=== PATIENT | male | born 1995 | race Caucasian/White ===

== ENCOUNTER 2016-10-18 21:33 | Emergency (ER) | payer OTHER ==
[~2016-10-18] VITALS: Wt 84.8 kg
[~2016-10-18 21:33] MED LIST: AMOXIL400 MG/5 M PO; AMOXIL500 MG PO; CLARITIN10 MG PO; FLEXERIL5 MG PO; IBU800 MG PO; IBUPROFEN600 MG PO; KENALOG 0.1%80 GM T; MEDROL DOSEPAK4 MG PO; MOTRIN800 MG PO; NAPROSYN500 MG PO; NKHM; NORCO 5-325 TA1 EACH PO; PEN-VEE K500 MG PO; PREDNISONE10 MG PO; TORADOL10 MG PO; TRAMADOL HCL50 MG PO; ULTRAM50 MG PO; VYVANSE30 MG PO
[2016-10-18] MEDS ORDERED: VYVANSE40 MG PO (21:46)
[2016-10-18 23:27] LABS: BILIRUBIN NEGATIVE (NEGATIVE); BLOOD NEGATIVE (NEGATIVE); CLARITY CLEAR (CLEAR); COLOR YELLOW (YELLOW); GLUCOSE NEGATIVE (NEGATIVE); KETONE NEGATIVE (NEGATIVE); LEUKO ESTERASE NEGATIVE (NEGATIVE); NITRITE NEGATIVE (NEGATIVE); PH 8.5 (5.0-9.0); PROTEIN NEGATIVE (NEGATIVE); UROBILINOGEN 0.2 E.U./dl (0.2-1.0)
[2016-10-18 23:45] LABS: BACTERIA TRACE; URINE REFLEX COMMENT NO (NO); WBC 0-2 wbc/hpf (0-5)
[2016-10-19] MEDS ORDERED: DELTASONE20 M1 PO (00:15)
[2016-10-19] MEDS ORDERED: PROCTOSOL-HC2.51 TP (00:15)
[2016-10-19] MEDS ORDERED: HYDROCODONE BIT1 T11 PO (00:15)
== END 2016-10-19 00:35 | disposition home or self-care (01) ==
LOC: ED 21:33
PROVIDERS: Physician Assistant
DX: S20.221A Contusion of right back wall of thorax, initial encounter (principal); K64.4 Residual hemorrhoidal skin tags; M54.16 Radiculopathy, lumbar region; F17.200 Nicotine dependence, unspecified, uncomplicated; Z79.899 Other long term (current) drug therapy; W22.8XXA Striking against or struck by other objects, initial encounter; Y93.9 Activity, unspecified; Y92.9 Unspecified place or not applicable; Y99.9 Unspecified external cause status

== ENCOUNTER 2017-01-30 12:24 | Emergency (ER) | payer OTHER ==
[~2017-01-30] VITALS: Wt 84.8 kg
[~2017-01-30 12:24] MED LIST changes: +DELTASONE20 M1 PO; +HYDROCODONE BIT1 T11 PO; +PROCTOSOL-HC2.51 TP; +VYVANSE40 MG PO
[2017-01-30 12:28] VITALS: BP 141/61
[2017-01-30] MEDS ORDERED: PREDNISONE10 MG PO (12:41)
== END 2017-01-30 13:24 | disposition home or self-care (01) ==
LOC: ED 12:24
DX: L30.9 Dermatitis, unspecified (principal); R03.0 Elevated blood-pressure reading, without diagnosis of hypertension; F17.200 Nicotine dependence, unspecified, uncomplicated; Z79.899 Other long term (current) drug therapy

== ENCOUNTER 2017-05-08 20:27 | Emergency (ER) | payer OTHER ==
[~2017-05-08] VITALS: Ht 180.3 cm; Wt 77.1 kg
[2017-05-08 20:40] LABS: BASO % 0.8 % (0.0-1.0); EOS # 0.1 10*3/uL (0.0-0.4); EOS % 1.7 % (1.0-4.0); HEMATOCRIT 42.9 % (42.0-52.0); HEMOGLOBIN 14.5 g/dl (14.0-18.0); LYMPH # 1.6 10*3/uL (1.3-4.4); LYMPH % 31.6 % (27.0-41.0); MEAN CELL VOLUME 88.3 fl (80.0-94.0); MEAN CORPUSCULAR HGB 29.8 pg (27.0-31.0); MEAN CORPUSCULAR HGB CONC 33.8 g/dl (33.0-37.0); MONO # 0.4 10*3/uL (0.1-1.0); MONO % 8.1 % (3.0-9.0); NEUT % 57.8 % (47.0-73.0); PLATELET COUNT AUTOMATED 208 10*3/uL (130-400); RED BLOOD COUNT 4.86 10*6/uL (4.50-5.90); RED CELL DISTRI WIDTH 12.9 % (0-14.5); WHITE BLOOD COUNT 5.2 10*3/uL (4.8-10.8)
[2017-05-08 20:49] LABS: ACT PARTIAL THROMBO TIME 26.3 SECONDS (20.8-31.5)
[2017-05-08 20:58] LABS: ALBUMIN 4.3 gm/dl (3.1-4.5); ALKALINE PHOSPHATASE 97 U/L (45-117); BUN 10 mg/dl (7-24); CHLORIDE 103 mmol/L (98-107); CREATININE 1.02 mg/dL (0.70-1.30); MAGNESIUM 2.2 mg/dL (1.5-2.1); SGOT/AST 28 IU/L (3-35); SGPT/ALT 25 U/L (12-78); SODIUM 137 mmol/L (136-145); TOTAL PROTEIN 8.1 gm/dL (6.4-8.2); TROPONIN I < 0.015 ng/ml (<0.045)
[2017-05-08 22:22] VITALS: BP 112/65
[2017-05-08] MEDS ORDERED: KETOROLAC10 MG PO (22:34)
== END 2017-05-09 08:03 | disposition home or self-care (01) ==
LOC: ED 20:27
PROVIDERS: Emergency Medicine Emergency Medical Services
DX: R07.89 Other chest pain (principal); R42 Dizziness and giddiness; F17.200 Nicotine dependence, unspecified, uncomplicated

== ENCOUNTER 2017-05-22 15:29 | Emergency (ER) | payer OTHER ==
[~2017-05-22] VITALS: Ht 180.3 cm; Wt 77.1 kg
[~2017-05-22 15:29] MED LIST changes: +KETOROLAC10 MG PO
[2017-05-22 15:37] VITALS: BP 119/53
[2017-05-22] MEDS ORDERED: AUGMENTIN 875875 MG PO (15:54)
== END 2017-05-22 16:06 | disposition home or self-care (01) ==
LOC: ED 15:29
DX: J02.9 Acute pharyngitis, unspecified (principal); H65.93 Unspecified nonsuppurative otitis media, bilateral; F17.200 Nicotine dependence, unspecified, uncomplicated

== ENCOUNTER 2017-06-25 23:16 | Emergency (ER) | payer OTHER ==
[~2017-06-25] VITALS: Wt 76.2 kg
[~2017-06-25 23:16] MED LIST changes: +AUGMENTIN 875875 MG PO
[2017-06-25 23:21] VITALS: BP 125/66
== END 2017-06-26 00:30 | disposition home or self-care (01) ==
LOC: ED 23:16
DX: R05 Cough (principal); F17.200 Nicotine dependence, unspecified, uncomplicated

== ENCOUNTER 2017-09-13 02:06 | Emergency (ER) | payer SELFPAY ==
[~2017-09-13] VITALS: Ht 182.8 cm; Wt 81.6 kg
[2017-09-13 02:11] VITALS: BP 134/86
[2017-09-13] MEDS ORDERED: IBU800 MG PO (02:48)
== END 2017-09-13 02:50 | disposition home or self-care (01) ==
LOC: ED 02:06
DX: S93.401A Sprain of unspecified ligament of right ankle, initial encounter (principal); F17.200 Nicotine dependence, unspecified, uncomplicated; X58.XXXA Exposure to other specified factors, initial encounter; Y93.39 Activity, other involving climbing, rappelling and jumping off; Y92.89 Other specified places as the place of occurrence of the external cause; Y99.8 Other external cause status

== ENCOUNTER 2018-11-29 21:37 | Emergency (ER) | payer OTHER ==
[~2018-11-29] VITALS: Ht 154.9 cm; Wt 88.5 kg
[2018-11-29 21:40] VITALS: BP 129/72
[2018-11-29] MEDS ORDERED: ANAPROX DS550 MG PO (23:48)
[2018-11-29] MEDS ORDERED: ROBAXIN500 M1 PO (23:48)
== END 2018-11-30 00:03 | disposition home or self-care (01) ==
LOC: ED 21:37
DX: M54.5 Low back pain (principal); F17.200 Nicotine dependence, unspecified, uncomplicated; Z79.899 Other long term (current) drug therapy; X58.XXXA Exposure to other specified factors, initial encounter; Y93.89 Activity, other specified; Y92.89 Other specified places as the place of occurrence of the external cause; Y99.8 Other external cause status

== ENCOUNTER 2019-01-18 12:12 | Emergency (ER) | payer OTHER ==
[~2019-01-18] VITALS: Ht 182.8 cm; Wt 81.6 kg
[~2019-01-18 12:12] MED LIST changes: +ANAPROX DS550 MG PO; +ROBAXIN500 M1 PO
[2019-01-18 12:17] VITALS: BP 139/68
[2019-01-18] MEDS ORDERED: CEPHALEXIN500 M1 PO (13:38)
[2019-01-18] MEDS ORDERED: ANTIBIOTIC28.4 GM T (13:38)
== END 2019-01-18 14:26 | disposition home or self-care (01) ==
LOC: ED 12:12
DX: S59.901A Unspecified injury of right elbow, initial encounter (principal); S49.91XA Unspecified injury of right shoulder and upper arm, initial encounter; F17.200 Nicotine dependence, unspecified, uncomplicated; W22.8XXA Striking against or struck by other objects, initial encounter; Y93.89 Activity, other specified; Y92.89 Other specified places as the place of occurrence of the external cause; Y99.8 Other external cause status

== ENCOUNTER 2020-04-21 17:17 | Emergency (ER) | payer OTHER ==
[~2020-04-21] VITALS: Wt 86.2 kg
[~2020-04-21 17:17] MED LIST changes: +ANTIBIOTIC28.4 GM T; +CEPHALEXIN500 M1 PO
[2020-04-21 21:08] VITALS: BP 125/83
== END 2020-04-21 20:57 | disposition home or self-care (01) ==
LOC: ED 17:17
DX: T26.00XA Burn of unspecified eyelid and periocular area, initial encounter (principal); T24.032A Burn of unspecified degree of left lower leg, initial encounter; S80.812A Abrasion, left lower leg, initial encounter; S80.811A Abrasion, right lower leg, initial encounter; S00.83XA Contusion of other part of head, initial encounter; S40.012A Contusion of left shoulder, initial encounter; Z79.899 Other long term (current) drug therapy; V86.56XA Driver of dirt bike or motor/cross bike injured in nontraffic accident, initial encounter; X08.8XXA Exposure to other specified smoke, fire and flames, initial encounter; Y93.89 Activity, other specified; Y92.89 Other specified places as the place of occurrence of the external cause; Y99.8 Other external cause status

== ENCOUNTER 2023-03-28 16:13 | Emergency (ER) | payer OTHER ==
[~2023-03-28] VITALS: Ht 180.3 cm; Wt 90.7 kg
[2023-03-28 16:20] VITALS: BP 149/81
[2023-03-28] MEDS ORDERED: TRIAMCINOLONE430 GM TD (16:48)
[2023-03-28] MEDS ORDERED: PREDNISONE20 M1 PO (16:48)
== END 2023-03-28 17:12 | disposition home or self-care (01) ==
LOC: ED 16:13
DX: L23.7 Allergic contact dermatitis due to plants, except food (principal); F90.9 Attention-deficit hyperactivity disorder, unspecified type; Z98.890 Other specified postprocedural states

== ENCOUNTER 2023-12-29 09:56 | Emergency (ER) | payer OTHER ==
[~2023-12-29] VITALS: Ht 180.3 cm; Wt 104.3 kg
[~2023-12-29 09:56] MED LIST changes: +PREDNISONE20 M1 PO; +TRIAMCINOLONE430 GM TD
[2023-12-29 10:11] VITALS: BP 147/74
[2023-12-29] MEDS ORDERED: Acetaminophen/Oxycodone 5 MG/325 MG TABLET PO ONE (10:20)
[2023-12-29] MEDS ORDERED: MELOXICAM15 MG PO (10:31)
== END 2023-12-29 10:44 | disposition home or self-care (01) ==
LOC: ED 09:56
DX: K42.9 Umbilical hernia without obstruction or gangrene (principal); Z98.890 Other specified postprocedural states

== ENCOUNTER 2024-01-02 15:52 | Emergency (ER) | payer OTHER ==
[~2024-01-02] VITALS: Ht 180.3 cm; Wt 104.3 kg
[~2024-01-02 15:52] MED LIST changes: +MELOXICAM15 MG PO
[2024-01-02 16:14] VITALS: BP 125/83
[2024-01-02] MEDS ORDERED: CEPHALEXIN500 M1 PO (17:11)
== END 2024-01-02 17:29 | disposition home or self-care (01) ==
LOC: ED 15:52
DX: R19.8 Other specified symptoms and signs involving the digestive system and abdomen (principal); K42.9 Umbilical hernia without obstruction or gangrene; F90.9 Attention-deficit hyperactivity disorder, unspecified type; Z98.890 Other specified postprocedural states

== ENCOUNTER 2024-02-27 14:32 | Emergency (ER) | payer OTHER ==
[~2024-02-27] VITALS: Ht 180.3 cm; Wt 108.9 kg
[2024-02-27 15:10] VITALS: BP 122/60
[2024-02-27] MEDS ORDERED: PREDNISONE20 M1 PO (15:11)
== END 2024-02-27 15:23 | disposition home or self-care (01) ==
LOC: ED 14:32
DX: L23.7 Allergic contact dermatitis due to plants, except food (principal); F90.9 Attention-deficit hyperactivity disorder, unspecified type; Z98.890 Other specified postprocedural states

== ENCOUNTER 2024-05-17 15:05 | Emergency (ER) | payer OTHER ==
[~2024-05-17] VITALS: Ht 177.8 cm; Wt 99.8 kg
[2024-05-17 15:19] VITALS: BP 142/86
[2024-05-17] MEDS ORDERED: CEPHALEXIN500 M1 PO (15:29)
[2024-05-17] MEDS ORDERED: NYSTATIN CREAM15 GM T (15:29)
== END 2024-05-17 15:55 | disposition home or self-care (01) ==
LOC: ED 15:05
DX: B36.9 Superficial mycosis, unspecified (principal); L03.311 Cellulitis of abdominal wall; F90.9 Attention-deficit hyperactivity disorder, unspecified type; Z98.890 Other specified postprocedural states

== ENCOUNTER 2024-06-19 12:16 | Emergency (ER) | payer OTHER ==
[~2024-06-19] VITALS: Ht 180.3 cm; Wt 102.1 kg
[~2024-06-19 12:16] MED LIST changes: +NYSTATIN CREAM15 GM T
[2024-06-19] MEDS ORDERED: FAMOTIDINE 50 ML IV ONE ×2 (12:50→16:40)
[2024-06-19] MEDS ORDERED: SODIUM CHLORIDE 0.9% 500 ML IV ONE (12:50)
[2024-06-19] MEDS ORDERED: diphenhydrAMINE hydrochloride 50 MG/ML VIAL IV ONE (12:50)
[2024-06-19] MEDS ORDERED: methylPREDNISolone sod succ 125 MG VIAL IV ONE (12:50)
[2024-06-19 13:04] LABS: BASO % 0.5 % (0.0-1.0); EOS # 0.1 10*3/uL (0.0-0.4); EOS % 1.7 % (1.0-4.0); HEMATOCRIT 45.2 % (42.0-52.0); MEAN CELL VOLUME 89.5 fl (80.0-94.0); MEAN CORPUSCULAR HGB 28.7 pg (27.0-31.0); MEAN CORPUSCULAR HGB CONC 32.1 g/dl (33.0-37.0); MONO # 0.4 10*3/uL (0.1-1.0); MONO % 4.9 % (3.0-9.0); NEUT # 4.9 10*3/uL (2.3-7.9); NEUT % 65.6 % (47.0-73.0); PLATELET COUNT AUTOMATED 274 10*3/uL (130-400); RED BLOOD COUNT 5.05 10*6/uL (4.50-5.90); RED CELL DISTRI WIDTH 12.9 % (0-14.5); WHITE BLOOD COUNT 7.5 10*3/uL (4.8-10.8)
[2024-06-19 13:40] LABS: ALKALINE PHOSPHATASE 111 U/L (46-116); BUN 15 mg/dl (9-23); CHLORIDE 103 mmol/L (98-107); POTASSIUM 3.4 mmol/L (3.4-5.1); SGPT/ALT 32 U/L (5-49); TOTAL PROTEIN 7.7 gm/dL (6.0-8.0)
[2024-06-19 17:10] VITALS: BP 130/70
== END 2024-06-19 17:07 ==
LOC: ED 12:16
PROVIDERS: Emergency Medicine
DX: T41.0X1A Poisoning by inhaled anesthetics, accidental (unintentional), initial encounter (principal); K12.2 Cellulitis and abscess of mouth; F90.9 Attention-deficit hyperactivity disorder, unspecified type; Z98.890 Other specified postprocedural states; Y92.89 Other specified places as the place of occurrence of the external cause

== ENCOUNTER 2024-09-25 17:54 | Emergency (ER) | payer OTHER ==
[~2024-09-25] VITALS: Ht 180.3 cm; Wt 102.5 kg
[2024-09-25 18:08] VITALS: BP 135/76
[2024-09-25] MEDS ORDERED: Acetaminophen/Hydrocodone 5 MG/325 MG TABLET PO ONE (18:40)
[2024-09-25] MEDS ORDERED: CYCLOBENZAPRINE10 MG PO (21:56)
[2024-09-25] MEDS ORDERED: Cyclobenzaprine Hydrochlorid 10 MG TAB PO ONE (22:00)
== END 2024-09-25 22:10 | disposition home or self-care (01) ==
LOC: ED 17:54
DX: S39.012A Strain of muscle, fascia and tendon of lower back, initial encounter (principal); M25.551 Pain in right hip; M51.26 Other intervertebral disc displacement, lumbar region; F90.9 Attention-deficit hyperactivity disorder, unspecified type; Z98.890 Other specified postprocedural states; V49.9XXA Car occupant (driver) (passenger) injured in unspecified traffic accident, initial encounter; Y93.89 Activity, other specified; Y92.410 Unspecified street and highway as the place of occurrence of the external cause; Y99.8 Other external cause status

== ENCOUNTER 2025-05-08 11:57 | Emergency (ER) | payer SELFPAY ==
[~2025-05-08] VITALS: Ht 180.3 cm; Wt 98.4 kg
[~2025-05-08 11:57] MED LIST changes: +CYCLOBENZAPRINE10 MG PO
[2025-05-08 12:03] VITALS: BP 143/70
[2025-05-08] MEDS ORDERED: MEDROL DOSEPAK4 MG PO (12:40)
[2025-05-08] MEDS ORDERED: AMOX-CLAV 875-1 EACH PO (12:40)
[2025-05-08] MEDS ORDERED: ANTIFUNGAL CRE141 GM T (12:40)
== END 2025-05-08 13:09 | disposition home or self-care (01) ==
LOC: ED 11:57
DX: K04.7 Periapical abscess without sinus (principal); B35.3 Tinea pedis; F90.9 Attention-deficit hyperactivity disorder, unspecified type

== ENCOUNTER 2025-05-13 10:44 | Emergency (ER) | payer SELFPAY ==
[~2025-05-13] VITALS: Ht 180.3 cm; Wt 99.8 kg
[~2025-05-13 10:44] MED LIST changes: +AMOX-CLAV 875-1 EACH PO; +ANTIFUNGAL CRE141 GM T
[2025-05-13 10:52] VITALS: BP 157/105
[2025-05-13] MEDS ORDERED: Ondansetron Hydrochloride 4 MG/2 ML VIAL IV ONE (11:40)
[2025-05-13] MEDS ORDERED: HYDROmorphONE Hydrochloride 0.5 MG/0.5 ML SYRINGE IV ONE (11:40)
[2025-05-13] MEDS ORDERED: SODIUM CHLORIDE 0.9% 1,000 ML IV ONE (11:40)
[2025-05-13] MEDS ORDERED: IOHEXOL 300 MG/ML 100 ML VIAL IV ONE (11:45)
[2025-05-13 11:52] LABS: BASO # 0.1 10*3/uL (0.0-0.1); BASO % 0.6 % (0.0-1.0); EOS # 0.1 10*3/uL (0.0-0.4); EOS % 1.0 % (1.0-4.0); MEAN CELL VOLUME 88.8 fl (80.0-94.0); MEAN CORPUSCULAR HGB 29.1 pg (27.0-31.0); MEAN PLATELET VOLUME 9.1 fl (9.6-12.3); MONO # 1.0 10*3/uL (0.1-1.0); MONO % 8.9 % (3.0-9.0); NEUT # 7.6 10*3/uL (2.3-7.9); NEUT % 70.9 % (47.0-73.0); NUCLEATED RED BLOOD CELL 0.0 % (0.0-0.0); NUCLEATED RED BLOOD CELL 0.0 10*3/uL (0.0-0.0); PLATELET COUNT AUTOMATED 367 10*3/uL (130-400); RED CELL DISTRI WIDTH 13.7 % (0-14.5)
[2025-05-13 12:14] LABS: BUN 10 mg/dl (9-23); SGPT/ALT 121 U/L (5-49)
[2025-05-13 12:41] LABS: BILIRUBIN Negative (Negative); BLOOD Negative (Negative); CLARITY Clear (Clear); COLOR Yellow (Yellow); KETONE Negative (Negative); LEUKO ESTERASE Negative (Negative); NITRITE Negative (Negative); SPECIFIC GRAVITY >= 1.030 (1.001-1.030); UROBILINOGEN 0.2 E.U./dl (0.0-1.0)
[2025-05-13 12:42] LABS: PH 8.5 (4.5-8.0)
[2025-05-13 12:51] LABS: EPITHELIAL CELLS 0-2; RBC 0-2 rbc/hpf (0-2)
[2025-05-13] MEDS ORDERED: Motrin,Rufen800 MG PO (12:58)
[2025-05-13] MEDS ORDERED: PERCOCET 5-3251 EACH PO (12:58)
== END 2025-05-13 13:09 | disposition home or self-care (01) ==
LOC: ED 10:44
PROVIDERS: Nurse Practitioner Family
DX: S16.1XXA Strain of muscle, fascia and tendon at neck level, initial encounter (principal); S63.502A Unspecified sprain of left wrist, initial encounter; S20.212A Contusion of left front wall of thorax, initial encounter; S09.90XA Unspecified injury of head, initial encounter; F90.9 Attention-deficit hyperactivity disorder, unspecified type; V47.6XXA Car passenger injured in collision with fixed or stationary object in traffic accident, initial encounter; Y93.89 Activity, other specified; Y92.410 Unspecified street and highway as the place of occurrence of the external cause; Y99.8 Other external cause status

== ENCOUNTER 2025-06-23 13:23 | Emergency (ER) | payer SELFPAY ==
[~2025-06-23] VITALS: Wt 113.4 kg
[~2025-06-23 13:23] MED LIST changes: +Motrin,Rufen800 MG PO; +PERCOCET 5-3251 EACH PO
[2025-06-23 13:31] VITALS: BP 135/86
[2025-06-23 14:23] LABS: URINE AMPHETAMINES Negative (1000ng/ml); URINE BARBITURATES Negative (200ng/ml); URINE BENZODIAZEPINES Negative (200ng/ml); URINE CANNABINOIDS (THC) Positive (50ng/ml); URINE COCAINE Positive (300ng/ml); URINE METHADONE Negative (300ng/ml); URINE OPIATES Positive (300ng/ml); URINE PHENCYCLIDINE Negative (25ng/ml)
[2025-06-23] MEDS ORDERED: ETOMIDATE 20 MG/10 ML VIAL IV ONE ×2 (14:35→19:27)
[2025-06-23] MEDS ORDERED: ROCURONIUM BROMIDE 50 MG/5 ML SYRINGE IV ONE ×3 (14:40→19:27)
[2025-06-23 14:44] LABS: BASO # 0.1 10*3/uL (0.0-0.1); BASO % 0.4 % (0.0-1.0); EOS # 0.1 10*3/uL (0.0-0.4); EOS % 0.6 % (1.0-4.0); MEAN CELL VOLUME 91.3 fl (80.0-94.0); MEAN CORPUSCULAR HGB 29.4 pg (27.0-31.0); MEAN PLATELET VOLUME 9.2 fl (9.6-12.3); MONO # 0.8 10*3/uL (0.1-1.0); MONO % 5.3 % (3.0-9.0); NEUT # 12.7 10*3/uL (2.3-7.9); NEUT % 83.2 % (47.0-73.0); NUCLEATED RED BLOOD CELL 0.0 % (0.0-0.0); NUCLEATED RED BLOOD CELL 0.0 10*3/uL (0.0-0.0); PLATELET COUNT AUTOMATED 346 10*3/uL (130-400); RED CELL DISTRI WIDTH 13.2 % (0-14.5)
[2025-06-23] MEDS ORDERED: PROPOFOL 50 ML IV SCH (15:00)
[2025-06-23 15:06] LABS: BUN 11 mg/dl (9-23); SGPT/ALT 50 U/L (5-49)
[2025-06-23] MEDS ORDERED: SODIUM CHLORIDE 0.9% 2,000 ML IV ONE (15:13)
== END 2025-06-23 15:27 | disposition short-term general hospital (02) ==
LOC: ED 13:23
PROVIDERS: Emergency Medicine
DX: S29.9XXA Unspecified injury of thorax, initial encounter (principal); S39.93XA Unspecified injury of pelvis, initial encounter; F90.9 Attention-deficit hyperactivity disorder, unspecified type; V86.95XA Unspecified occupant of 3- or 4- wheeled all-terrain vehicle (ATV) injured in nontraffic accident, initial encounter; Y93.89 Activity, other specified; Y92.410 Unspecified street and highway as the place of occurrence of the external cause; Y99.8 Other external cause status